=== PATIENT | male | born 1940 | race Caucasian/White ===

== ENCOUNTER 2018-07-07 09:58 | Emergency (ER) | payer OTHER, BC ==
[2018-07-07] MEDS ORDERED: diphenhydrAMINE HCL 25 MG CAPSULE (FP) PO ONE ×2 (10:28→10:37)
[2018-07-07] MEDS ORDERED: ALBUTEROL SO4 2.5/IPRATROPIUM 0.5 INH SOL 3 ML VIAL.NEB. NEB ONE ×2 (10:28→10:37)
--- NOTE | 2018-07-07 10:28 | PDOC ---
History of Present Illness - General Chief Complaint: Cold Symptoms Stated Complaint: HEAD CONGESTION THROAT SORE AND COUGH Time Seen by Provider: 07/07/18 10:16 History Source: Patient Exam Limitations: No Limitations - History of Present Illness Initial Comments: 07/07/18 10:33 Mr Heart is a 78 YOM with h/o polycythemia vera, HTN, HLD, BPH, hypothyroidism, presenting with URI sx x 1 week, a/w congestion and cough. Has had course of Zpak, on day 3 of 5. Complaining of sinus pain, nasal congestion of clear materia, and upper respiratory wheezing with the cough. Today he noted his eyes were puffy and itchy; no drainage or eye pain, no visual disturbances. Has also tried robitussin without relief. No travel history. No new changes in medications. +sick contacts with friends who were sick at a [employer] party, and grandchildren with URI sx. Allergies: PCN; sulfa, mold Past Medical History: polycythemia vera, HTN, HLD, BPH, hypothyroidism Social history: Lives with family. No smoking. No alcohol. No illicit drugs. Surgical history: cholecystectomy PMD: Dr Calhoun ======= ROS GENERAL/CONSTITUTIONAL: No fever or chills. No weakness. no sweats. HEAD, EYES, EARS, NOSE AND THROAT: No change in vision or hearing. No ear pain or discharge. +sore throat, nasal congestion, post nasal drip. CARDIOVASCULAR: No chest pain or palpitations, syncope or edema. RESPIRATORY: No SOB, wheezing, or hemoptysis. +cough GASTROINTESTINAL No nausea/vomiting. No diarrhea or constipation. No Abdominal pain. MUSCULOSKELETAL: No joint or muscle swelling or pain. No neck or back pain. No myalgias. SKIN: No rash or changes in skin color or lesions. NEUROLOGIC: +headache. No loss of consciousness, or change in strength/ sensation. HEMATOLOGIC/LYMPHATIC: No anemia, easy bruising/bleeding, or history of blood clots. ALLERGIC/IMMUNOLOGIC: penicillin allergy All other systems reviewed and negative, or as documented in HPI. PE: General: Well appearing, awake and alert, NAD. HEENT: NCAT, PERRL, EOMI, clear conjunctiva, anicteric, lower lid edema, no discoloration and no active eye discharge/purulence. no ciliary injection. moist mucus membranes, clear oropharynx. Airway patent, normal phonation. Uvula midline. No sinus tenderness to percussion, TM clear, no pinna tenderness to manipulation. Neck: neck supple, FROM Resp: lungs generally clear, faint wheeze on expiration in lower bases occasionally, normal and even respirations, no respiratory distress CVS: RRR, no murmurs, 2+ peripheral pulses throughout, no peripheral edema Abdomen: soft, NTND, no peritoneal signs. Back: nontender, normal inspection and ROM MSK: no edema, RAMSEY x4, ROM intact. No clubbing or cyanosis. normal bulk and tone. Extremities: no calf tenderness Neuro: alert, oriented appropriately; no focal neurologic deficits Skin: warm and well perfused, cap refill <2 sec, normal color 07/07/18 11:03 07/07/18 11:33 07/07/18 11:34 Past History - Past Medical History Allergies/Adverse Reactions: Allergies Allergy/AdvReac Type Severity Reaction Status Date / Time Sulfa (Sulfonamide Allergy Intermediate Rash Verified 07/07/18 10:49 Antibiotics) Penicillins Allergy Unknown Verified 07/07/18 10:01 Home Medications: Ambulatory Orders Albuterol Sulfate Inhaler - [Ventolin HFA Inhaler -] 1 - 2 inh PO Q4H PRN #1 inhaler 07/07/18 Alfuzosin HCl [Uroxatral] 10 mg PO DAILY 07/07/18 Aspirin 81 mg PO DAILY 07/07/18 Atorvastatin Ca [Lipitor] 20 mg PO DAILY 07/07/18 Cholecalciferol (Vitamin D3) [Vitamin D3] 1,000 unit PO DAILY 07/07/18 Levothyroxine [Synthroid -] 75 mcg PO DAILY 07/07/18 Losartan/Hydrochlorothiazide [Losartan-Hctz 100-25 mg Tab] 1 each PO DAILY 07/07 Metoprolol Tartrate [Lopressor -] 12.5 mg PO DAILY 07/07/18 Multivitamin/Iron/Folic Acid [Centrum Adults Tablet] 1 each PO DAILY 07/07/18 ED Treatment Course - LABORATORY CBC & Chemistry Diagram: 07/07/18 10:43 07/07/18 10:43 - RADIOLOGY Radiology Studies Ordered: Category Date Time Status CHEST PA & LAT [RAD] Stat Radiology 07/07/18 10:10 Ordered Medical Decision Making - Medical Decision Making 07/07/18 10:27 hpi as documented VS wnl. no hypoxia, no respiratory distress. DDx viral syndrome, URI, sinusitis, pharyngitis, post nasal drip, conjunctivitis. given duonebs x1 here with symptom relief. no e/o bacterial conjunctivitis, no visual changes. some allergic shiners and lower lid edema without discharge from eyes, so likely viral vs allergic. CXR clear, no infiltrate. labs and lytes unremarkable, normal CBC,H/H and no leukocytosis sodium mildly low 129, but corrected for mild hyperglycemia ~168, it should be 130-131. does not have neuro changes, does not appear hypovolemic or hypervolemic, he did note eating sugary foods this morning so likely precipitant of mild pseudohyponatremia. recheck with PMD. clinical f/u primary doctor, Dr Calhoun. return precautions discussed. supportive care as documented, rest hydration and salt water gargles/fluids. albuterol inhaler PRN 4-6 hr for cough/wheeze; mucinex OTC for the expectorant effect; no sympathomimetics to be used with risk of HTN and age related complications. finish zpak x 2 more days left. no indication for further abx or adjustments, as sx of sinusitis <10 days without toxicity or fever. likely viral etiology. benadryl PRN for the allergic shiners and sx, side effect profile discussed and PRN use. Pt to be discharged in stable condition. Patient and family made aware of impression and plan, return precautions discussed (including but not limited to worsening pain or symptoms), fevers, or signs of infection, chest pain, respiratory distress, inability to tolerate oral intake, dehydration, syncope, or neurologic changes). Follow up with PMD and/or specialist as recommended, follow up information provided, take medications as instructed for duration of time. continue with supportive care, avoid triggers and precipitants. Patient does not suffer from an acute life-threatening medical condition at this time she is safe for outpatient follow-up. 07/07/18 11:33 07/07/18 11:34 07/07/18 11:37 *DC/Admit/Observation/Transfer Diagnosis at time of Disposition: Sinusitis Qualifiers: Sinusitis location: unspecified location Chronicity: acute Recurrence: not specified as recurrent Qualified Code(s): J01.90 - Acute sinusitis, unspecified URI (upper respiratory infection) Qualifiers: URI type: unspecified viral URI Qualified Code(s): J06.9 - Acute upper respiratory infection, unspecified - Discharge Dispostion Disposition: HOME Condition at time of disposition: Stable - Prescriptions Prescriptions: Albuterol Sulfate Inhaler - [Ventolin HFA Inhaler -] 1 - 2 inh PO Q4H PRN #1 inhaler PRN Reason: Cough - Referrals Referrals: Celso Calhoun MD [Staff Physician] - - Patient Instructions Printed Discharge Instructions: DI for Sinusitis, DI for Acute Bronchitis, DI for Viral Upper Respiratory Infection -- Adult Additional Instructions: your chest xray was normal without evidence of pneumonia your blood work is also normal, no changes from prior. your blood sugar was a little bit elevated causing your sodium to go down and be on the low side - make sure to have this rechecked with your doctor. you are not symptomatic from it, so no acute illness associated with this. avoid anything too sugary in your diet. salt water gargles and warm lemon tea is appropriate as well for soothing qualities for sore throat/cough. minimize spread of infection given contagious nature, and cover your mouth and wash your hands adequately with soap and water. Stay well hydrated and rest. you can take benadryl 25 mg every 6-8 hours as needed for eye itch and swelling , but there is no signs of infection there currently. this can cause you to feel sleepy, so only use as needed and avoid falls/injury. May use the albuterol inhaler every 4-6 hours as needed for cough and breathing to clear up your airways and help alleviate your cough. you can use over the counter mucinex to help expectorate your cough. Return precautions include respiratory distress, difficulty breathing, chest pain, lethargy, confusion, dehydration, high fevers or pain. - Post Discharge Activity
[2018-07-07 10:36] VITALS: BP 156/100; PULSE 88; TEMP 98.1; BMI 25.0
[2018-07-07 11:04] LABS: BASO % 0.7 % (0-2.0); EOS % 2.6 % (0-4.5); HEMATOCRIT 47.8 % (35.4-49); HEMOGLOBIN 15.4 GM/dl (11.7-16.9); LYMPH % 11.3 % (8-40); MCH 23.2 pg (25.7-33.7); MCHC 32.1 g/dl (32.0-35.9); MEAN CELL VOLUME 72.1 fl (80-96); MEAN PLT VOLUME 8.5 fl (7.5-11.1); MONO % 5.3 % (3.8-10.2); NEUT % 80.1 % (42.8-82.8); PLATELET COUNT 224 K/MM3 (134-434); RBC 6.63 M/mm3 (4.00-5.60); RDW 17.4 % (11.9-15.9); WHITE BLOOD COUNT 6.4 K/mm3 (4.0-10.8)
[2018-07-07 11:07] LABS: ADD RBC MORPHOLOGY YES
[2018-07-07 11:18] LABS: ALBUMIN 4.2 g/dl (3.4-5.0); ALK PHOS 65 U/L (45-117); ANION GAP 7 MMOL/L (8-16); BILIRUBIN,TOTAL 2.8 mg/dl (0.2-1); BLOOD UREA NITROGEN 8 mg/dl (7-18); CALCIUM 9.4 mg/dl (8.5-10); CHLORIDE 95 mmol/L (98-107); CO2 27 mmol/L (21-32); CREATININE 0.9 mg/dl (0.55-1.3); GLUCOSE,RANDOM 168 mg/dl (74-106); POTASSIUM 3.8 mmol/L (3.5-5.1); SGOT/AST 40 U/L (15-37); SGPT/ALT 40 U/L (13-61); SODIUM 129 mmol/L (136-145); TOT PROT 6.6 g/dl (6.4-8.2)
[2018-07-07 12:25] LABS: ANISOCYTOSIS FEW; MACROCYTOSIS FEW
== END 2018-07-07 11:39 | disposition home or self-care (01) ==
LOC: FER 09:58
PROC: 3E0F7GC Introduction of Other Therapeutic Substance into Respiratory Tract, Via Natural or Artificial Opening (ICD-10-PCS; principal; 2018-07-07)
DX: J06.9 Acute upper respiratory infection, unspecified (principal); J01.90 Acute sinusitis, unspecified
CPT/HCPCS: 36415; 71046-TC-FY; 80053; 85025; 94640; 99282-25